=== PATIENT | female | born 1965 | race Caucasian/White ===

== ENCOUNTER 2018-05-28 17:18 | Inpatient (IN) ==
[2018-05-28] MEDS ORDERED: Naloxone 0.4 MG/ML INJ IVP PRN (23:10)
[2018-05-28] MEDS ORDERED: Acetaminophen 325 MG TABLET PO PRN (23:10)
[2018-05-28] MEDS ORDERED: Ondansetron 4 MG/2 ML VIAL IVP PRN (23:13)
[2018-05-28] MEDS ORDERED: Ketorolac 30 MG/ML VIAL IVP PRN (23:13)
--- NOTE | 2018-05-28 23:17 | Internal Med History&Physical ---
Date of Encounter: 05/28/18 Time of Encounter: 10:00 Internal Medicine - H&P: HPI Chief complaint: Abdominal pain Admitted From: Home Plans for Post Hospital Care: Home History of present illness: Ms. Mejia is a 52 year old female transferred from [facility] for abdominal pain. Patient is generally in good health without significant past medical history. Patient has abdominal pain since May 24. The pain is intermittent. Located on right upper quadrant or epigastric area. Radiated to the back. Patient went to [facility] and abdominal CT shows cholelithiasis and also suggested bilateral pneumonia. Patient was admitted for pneumonia and was treated with Zosyn. Patient's abdominal pain has improved after treatment. Patient was discharged on May 26 with by mouth Levaquin. Today patient has worsening abdominal pain again and presented to [facility] emergency room. US abdomen shows cholelithiasis with signs of acute cholecystitis. Patient was transferred to our hospital for further management. Patient denies fever, nausea, or diarrhea. Patient denies cough or shortness of breath. Lab and imaging test from [facility] has been reviewed: CBC 14.6/15.1/45.9 /449, BMP 137/4.0/105/25/13/0.67/111, lipase 11, lactate 1.12. US liver: Cholelithiasis with acute cholecystitis. Past Med Surg Social Fam HX - Past Medical History Medical history: no medical history - Past Surgical History Additional surgical history: tubal 31 years ago - Social History Smoking Status: Current every day smoker Alcohol use: none Drug use: none - Family History Mother Adopted: No Living Status: Still Living Hx Family Cardiac Disorders: Yes (grandfather heart attack) Hx Family Respiratory Disorders: No Hx Family Cancer: Yes (grandfather liver, lung) Hx Family GI Disorders: No Hx Family Genitourinary Disorders: No Hx Family Endocrine Disorder: Yes (mother dm) Hx Family Musculoskeletal Disorders: No Hx Family Neuromuscular Disorders: No Hx Family Neurologic Disorders: No Hx Family HEENT Disorders: No Hx Family Autoimmune Disorders: No Hx Family Reproductive Disorders: No Hx Family Psychosocial Disorders: No Hx Family Medical Disorders: No Internal Medicine - H&P: Meds Levofloxacin [Levaquin] 750 mg PO DAILY MDD 7 days 05/28/18 [History] 3 Allergy/AdvReac Type Severity Reaction Status Date / Time No Known Allergies Allergy Verified 05/28/18 22:11 All Systems PM: A 10-system review of systems was performed and is negative for pertinent findings except as documented above in the HPI. - Constitutional Vitals: Temp Pulse Resp BP Pulse Ox 98.9 F 59 15 150/77 96 05/28/18 20:17 05/28/18 20:17 05/28/18 20:17 05/28/18 20:17 05/28/18 20:17 General appearance: Present: A&O X 3, no acute distress, answers questions appropriately - Head Head exam: Present: atraumatic, normocephalic - Eye Eye exam: Present: PERRL, conjuntiva pink, sclera anicteric Pupils: Present: PERRL - Neck Neck exam general surgery: Present: supple, trachea midline. Absent: lymphadenopathy - Respiratory Respiratory exam: Present: CTAB. Absent: accessory muscle use, rales, rhonchi, wheezes - Cardiovascular Cardiovascular exam: Present: RRR, +S1, +S2. Absent: diastolic murmur, gallop, rubs, systolic murmur - GI/Abdominal GI/Abdominal exam: Present: normal bowel sounds, soft, tenderness (Tenderness on right upper quadrant and epigastric area. Smith's sign positive), no peritoneal signs. Absent: distended - Extremities Exam Extremities exam: Present: warm, radial pulses palpable and symmetrical. Absent : calf tenderness, cyanotic, pedal edema - Neurological Exam Neurological exam: Present: CN II-XII intact, oriented X3, no focal deficits. Absent: pronater drift, facial droop, speech deficit - Skin Skin exam: Present: dry, intact - Assessment and plan (1) Cholelithiasis Current Visit: Yes Status: Acute Assessment and plan: Surgical consult. Plan for surgery. Qualifiers: Cholelithiasis location: gallbladder Cholecystitis presence: with cholecystitis Cholecystitis acuity: acute Biliary obstruction: without biliary obstruction Qualified Code(s): K80.00 - Calculus of gallbladder with acute cholecystitis without obstruction (2) Acute cholecystitis Current Visit: Yes Status: Acute Assessment and plan: Surgical consult. - Keep patient nothing by mouth, IV fluid - Restart IV Zosyn - Symptomatic treatment for pain and nausea (3) DVT prophylaxis Current Visit: Yes Status: Acute Assessment and plan: EPCDs - Time Spent With Patient Total time spent is greater than 50% in coordination of care (as documented) at patient's floor/unit and/or counseling patient: 40 minutes Greater than 35 minutes
[2018-05-29] MEDS: Piperacillin/Tazobactam 3.375 GM in 0.9 % Sodium Chloride Mini Bag 100 ML IVPB SCH ×4 (01:21→23:56)
[2018-05-29] MEDS: D5% in 0.45% NACL 1,000 ML IVC SCH ×2 (01:22→15:49)
[2018-05-29 05:25] LABS: Basophils # 0.1 K/mcL (0.0-0.2); Basophils % 0.6 %; Eosinophils # 0.5 K/mcL (0.0-0.6); Hematocrit 39.5 % (35.3-44.9); Hemoglobin 13.2 g/dL (11.5-15.4); Immature Granulocytes % 0.3 % (0-4); Lymphocytes # 2.9 K/mcL (0.6-4.6); Lymphocytes % 26.4 %; Mean Corpuscular HGB Conc 33.4 g/dL (31.6-35.5); Mean Corpuscular Hemoglobin 29.8 pg (28.0-33.3); Mean Corpuscular Volume 89.2 fL (83.0-100.0); Mean Platelet Volume 9.7 fL (9.4-12.4); Monocytes # 0.9 K/mcL (0.0-1.3); Monocytes % 7.7 %; Neutrophils # 6.8 K/mcL (1.6-8.9); Platelet Count 376 K/mcL (140-400); Red Blood Count 4.43 M/mcL (3.82-4.97); Red Cell Distribution Width 13.4 % (11.5-14.5)
[2018-05-29 05:31] LABS: INR 1.1; Prothrombin Time 12.8 Seconds (9.4-12.1)
[2018-05-29 05:44] LABS: BUN/Creatinine Ratio 16 (6-26); Blood Urea Nitrogen 12 mg/dL (6-20); Carbon Dioxide 24 mEq/L (23-29); Chloride 108 mEq/L (98-107); Glucose 106 mg/dL (70-105); Magnesium 2.1 mg/dL (1.6-2.6); Osmolality,Calculated 286 (280-300); Potassium 4.1 mEq/L (3.5-5.1); Sodium 138 mEq/L (136-145); eGFR For African Americans > 60 (> 60); eGFR For Non-African Americans > 60 (> 60)
[2018-05-29 10:28] LABS: Albumin 3.8 g/dL (3.5-5.7); Albumin/Globulin Ratio 1.4 (1.1-2.2); Bilirubin,Direct 0.3 mg/dL (0.0-0.2); Bilirubin,Indirect 0.4 mg/dL (0.0-1.2); Bilirubin,Total 0.7 mg/dL (0.3-1.0); Globulin 2.7 g/dL (2.4-3.5); Total Protein 6.5 g/dL (6.4-8.9)
[2018-05-29] MEDS ORDERED: *HR* Succinylcholine 200 MG/10 ML VIAL IVP ONE (15:46)
[2018-05-29] MEDS ORDERED: *HR* Rocuronium Bromide 50 MG/5 ML VIAL ONE (15:46)
[2018-05-29] MEDS ORDERED: Lidocaine -MPF 2% 2 ML VIAL ONE (15:46)
[2018-05-29] MEDS ORDERED: *HR* FentaNYL (PF) 100 MCG/2 ML VIAL ONE (15:46)
[2018-05-29] MEDS ORDERED: *HR* Midazolam HCl 2 MG/2 ML VIAL ONE (15:46)
[2018-05-29] MEDS ORDERED: *HR* Propofol 200 MG/20 ML VIAL IVP ONE (15:46)
--- NOTE | 2018-05-29 16:01 | Internal Med Progress Note ---
Date of Encounter: 05/30/18 Time of Encounter: 18:49 - Assessment and plan (1) Acute cholecystitis Status: Acute Assessment and plan: Just returned from cholecystectomy, no issues - Continue Zosyn - Toradol prn pain - Zofran prn n/v (2) Cholelithiasis Status: Acute Assessment and plan: S/p cholecystectomy Qualifiers: Cholelithiasis location: gallbladder Cholecystitis presence: with cholecystitis Cholecystitis acuity: acute and chronic Biliary obstruction: without biliary obstruction Qualified Code(s): K80.12 - Calculus of gallbladder with acute and chronic cholecystitis without obstruction (3) DVT prophylaxis Status: Acute Assessment and plan: EPCDs - Time Spent With Patient Total time spent is greater than 50% in coordination of care (as documented) at patient's floor/unit and/or counseling patient: - Constitutional Vitals: Temp Pulse Resp BP Pulse Ox 97.8 F 92 16 120/66 94 05/29/18 10:31 05/29/18 10:31 05/29/18 10:31 05/29/18 10:31 05/29/18 10:31 General appearance: Present: A&O X 3, no acute distress, answers questions appropriately Internal Medicine: Result - Labs CBC & Chem 7: 05/30/18 08:46 05/30/18 08:46 Labs: Short CBC 05/29/18 Range/Units 05:10 WBC 11.2 H (4.3-11.1) K/mcL Hgb 13.2 (11.5-15.4) g/dL Hct 39.5 (35.3-44.9) % Plt Count 376 (140-400) K/mcL Neutrophils # 6.8 (1.6-8.9) K/mcL BMP 05/29/18 05:10 Sodium 138 Potassium 4.1 Chloride 108 H Carbon Dioxide 24 BUN 12 Creatinine 0.73 Glucose 106 H Calcium 9.0 Liver Function 05/29/18 Range/Units 09:41 Total Bilirubin 0.7 (0.3-1.0) mg/dL Direct Bilirubin 0.3 H (0.0-0.2) mg/dL AST 34 (13-39) Units/L ALT 28 (7-52) Units/L Alkaline Phosphatase 95 (34-104) Units/L Albumin 3.8 (3.5-5.7) g/dL - ABG Interpretation ABG results: PT/INR, D-dimer PT 12.8 Seconds (9.4-12.1) H 05/29/18 05:10 Consult Discharge Plan - Plan Instructions: Laparoscopic Cholecystectomy (DC) Referrals: Sanjay Darden MD [Non-Partnered Physician] - 06/16/18 NONE,PCP [Primary Care Provider] - Prescriptions: Oxycodone HCl 5 mg PO Q6HR PRN 5 Days #20 tablet PRN Reason: Pain
--- NOTE | 2018-05-29 16:30 | Anesthesia Evaluation PreOp ---
Date of Encounter: 05/29/18 Time of Encounter: 16:28 - Past History Planned Operation: Robotic Assisted Laparoscopic Cholecystectomy Cardiac History: Denies any Significant Hx Pulmonary History: Smoker (quit 1 week ago, smoked for 30 years), Snore CHOIRMASTER History: Denies Any Significant HX Other Medical History: Denies Any Significant HX Anesthesia History: No Prior Anesthetic Complications, Past Anesthesia Alcohol Use: none Drug use: none Medications and Allergies Levofloxacin [Levaquin] 750 mg PO DAILY MDD 7 days 05/28/18 [History] 3 Allergy/AdvReac Type Severity Reaction Status Date / Time No Known Allergies Allergy Verified 05/28/18 22:11 - Meds/Allergy Pre-op Review Medications Reviewed: Yes Allergies Reviewed: Yes Beta Blockers on Current Med List: No Anesthesia Results - Labs 05/29/18 05:10 05/29/18 05:10 Laboratory Tests 05/29/18 05:10 PT 12.8 H INR 1.1 Anesthesia Exam Vital Signs/O2 Sat, Most Current Temp Pulse Resp BP Pulse Ox 97.8 F 92 16 120/66 94 05/29/18 10:31 05/29/18 10:31 05/29/18 10:31 05/29/18 10:31 05/29/18 10:31 Height: 5'1''/1.55m Weight: 138 lbs/62.6 kg NPO (# of Hours): 8 Pain Scale: 2 (abdomen) Pain Scale Used: Numeric (1 - 10) - HEENT Pupil (Motor): EOMI Mallampati: II Teeth: Normal Oral Opening: Greater than 3 - CHOIRMASTER LOC: Oriented CHOIRMASTER Motor: Normal RUE, Normal LUE, Normal RLE, Normal LLE, Normal Face CHOIRMASTER Sensory: Normal: RUE, LUE, RLE, LLE, Face - Cardiac Rhythm: Regular Murmur: None - Pulmonary Breath Sounds: bilateral Clear Respiratory Effort: Symmetrical Anesthesia Assess/Plan ASA Score: [address] [place] [address] Scale for Level of Consciousness: Cooperative, oriented, and tranquil Anesthetic Plan: General Monitoring Plan: Standard Monitors Recovery Plan: PACU
--- NOTE | 2018-05-29 16:36 | General Surgery Consult Note ---
Date of Encounter: 05/29/18 Time of Encounter: 16:34 Assessment and Plan (1) Cholelithiasis Current Visit: Yes Status: Acute 52F with acute cholecystitis; no evidence of biliary obstruction by labs; NPO IVF robotic tania today Qualifiers: Cholelithiasis location: gallbladder Cholecystitis presence: with cholecystitis Cholecystitis acuity: acute Biliary obstruction: without biliary obstruction Qualified Code(s): K80.00 - Calculus of gallbladder with acute cholecystitis without obstruction History of Present Illness Consult date: 05/29/18 Reason for consult: abdominal pain History of present illness: 52F with a 5 day history of worsening abdominal pain localized to the epigastric and RUQ. The patient is not associated with nausea and vomiting, but the pain is associated with meals. the patient gives a history suggestive of PO intolerance because, when she eats her pain is worse. She was evaluated at an OSH where a CT scan was obtained demonstrating inflammation of her gallbladder. She was sent home, but due to recurrence of her pain she was sent to [facility] for further evaluation and management. Past Med Surg Social Fam HX - Past Medical History Medical history: no medical history - Past Surgical History Additional surgical history: tubal 31 years ago - Social History Smoking Status: Current every day smoker Alcohol use: none Drug use: none - Family History Mother Adopted: No Living Status: Still Living Hx Family Cardiac Disorders: Yes (grandfather heart attack) Hx Family Respiratory Disorders: No Hx Family Cancer: Yes (grandfather liver, lung) Hx Family GI Disorders: No Hx Family Genitourinary Disorders: No Hx Family Endocrine Disorder: Yes (mother dm) Hx Family Musculoskeletal Disorders: No Hx Family Neuromuscular Disorders: No Hx Family Neurologic Disorders: No Hx Family HEENT Disorders: No Hx Family Autoimmune Disorders: No Hx Family Reproductive Disorders: No Hx Family Psychosocial Disorders: No Hx Family Medical Disorders: No Medications and Allergies Levofloxacin [Levaquin] 750 mg PO DAILY MDD 7 days 05/28/18 [History] 3 Allergy/AdvReac Type Severity Reaction Status Date / Time No Known Allergies Allergy Verified 05/28/18 22:11 Review of Systems All systems PM: The remainder of the systems were reviewed and are negative General Surgery Exam Initial Vital Signs Temp Pulse Resp BP Pulse Ox 98.9 F 59 15 150/77 96 05/28/18 20:17 05/28/18 20:17 05/28/18 20:17 05/28/18 20:17 05/28/18 20:17 - General physical appearance no distress - Eyes other (no scleral icterus), normal ocular movement - ENT normocephalic - Respiratory normal expansion, normal respiratory effort - Cardiovascular Cardiovascular exam: Present: RRR - Abdomen Abdomen general surgery: Present: soft, tender Abdominal Tenderness: Present: epigastic ((-)hall's sign on my exam), RUQ - Integumentary Integumentary general surgery: Present: warm and dry - Neurologic Present: CN 2-12 grossly intact - Musculoskeletal Present: normal posture - Psychiatric Psychiatric general surgery: Present: A&Ox3 Exam Initial Vital Signs Temp Pulse Resp BP Pulse Ox 98.9 F 59 15 150/77 96 05/28/18 20:17 05/28/18 20:17 05/28/18 20:17 05/28/18 20:17 05/28/18 20:17 Results - Labs 05/29/18 05:10 05/29/18 05:10 Abnormal lab results WBC 11.2 K/mcL (4.3-11.1) H 05/29/18 05:10 PT 12.8 Seconds (9.4-12.1) H 05/29/18 05:10 Chloride 108 mEq/L (98-107) H 05/29/18 05:10 Glucose 106 mg/dL (70-105) H 05/29/18 05:10 POC Glucose 109 mg/dL (70-99) H 05/29/18 11:08 Direct Bilirubin 0.3 mg/dL (0.0-0.2) H 05/29/18 09:41 Diabetes panel 05/29/18 05/29/18 Range/Units 05:10 09:41 Sodium 138 (136-145) mEq/L Potassium 4.1 (3.5-5.1) mEq/L Chloride 108 H (98-107) mEq/L Carbon Dioxide 24 (23-29) mEq/L BUN 12 (6-20) mg/dL Creatinine 0.73 (0.60-1.20) mg/dL Glucose 106 H (70-105) mg/dL Calcium 9.0 (8.6-10.3) mg/dL AST 34 (13-39) Units/L ALT 28 (7-52) Units/L Alkaline Phosphatase 95 (34-104) Units/L Albumin 3.8 (3.5-5.7) g/dL Calcium panel 05/29/18 05/29/18 Range/Units 05:10 09:41 Calcium 9.0 (8.6-10.3) mg/dL Albumin 3.8 (3.5-5.7) g/dL Pituitary panel 05/29/18 Range/Units 05:10 Sodium 138 (136-145) mEq/L Potassium 4.1 (3.5-5.1) mEq/L Chloride 108 H (98-107) mEq/L Carbon Dioxide 24 (23-29) mEq/L BUN 12 (6-20) mg/dL Creatinine 0.73 (0.60-1.20) mg/dL Glucose 106 H (70-105) mg/dL Calcium 9.0 (8.6-10.3) mg/dL Adrenal panel 05/29/18 05/29/18 Range/Units 05:10 09:41 Sodium 138 (136-145) mEq/L Potassium 4.1 (3.5-5.1) mEq/L Chloride 108 H (98-107) mEq/L Carbon Dioxide 24 (23-29) mEq/L BUN 12 (6-20) mg/dL Creatinine 0.73 (0.60-1.20) mg/dL Glucose 106 H (70-105) mg/dL Calcium 9.0 (8.6-10.3) mg/dL Total Bilirubin 0.7 (0.3-1.0) mg/dL AST 34 (13-39) Units/L ALT 28 (7-52) Units/L Alkaline Phosphatase 95 (34-104) Units/L Albumin 3.8 (3.5-5.7) g/dL All other labs normal. Consult Discharge Plan - Plan Referrals: NONE,PCP [Primary Care Provider] -
[2018-05-29] MEDS ORDERED: MORPHINE SUL Oral CONC 10 MG/0.5 ML ORAL.SYG SL PRN (16:38)
[2018-05-29] MEDS ORDERED: Ondansetron 4 MG/2 ML VIAL IVP ONE (16:38)
[2018-05-29] MEDS ORDERED: Albuterol 2.5 MG/3 ML NEBULIZER IH ONE (16:39)
[2018-05-29] MEDS ORDERED: Dexamethasone 4 MG/ML VIAL ONE (17:02)
[2018-05-29] MEDS ORDERED: Ondansetron 4 MG/2 ML VIAL ONE (17:02)
[2018-05-29] MEDS ORDERED: Neostigmine Methylsulfate 3 MG/3 ML SYRINGE ONE (17:58)
[2018-05-29] MEDS ORDERED: Ketorolac 30 MG/ML VIAL ONE (18:03)
[2018-05-29] MEDS: *HR* FentaNYL (PF) 100 MCG/2 ML VIAL IVP PRN ×2 (18:38→18:48)
[2018-05-29] MEDS ORDERED: Acetaminophen IV 1,000 MG/100 ML INFUS..BTL IVPB ONE (18:56)
--- NOTE | 2018-05-29 19:07 | Anesthesia Evaluation Post Op ---
Date of Encounter: 05/29/18 Time of Encounter: 19:06 - Vital Signs Vital Signs: Vital Signs/O2 Sat, Most Current Temp Pulse Resp BP Pulse Ox 98 F 59 16 161/69 93 05/29/18 18:25 05/29/18 18:45 05/29/18 18:45 05/29/18 18:45 05/29/18 18:45 - Lungs Lungs: Clear Ascult./Percussion - Airway Airway: Non-obstructed - Cardiovascular Regular Rate - Mental Status Mental Status: Alert & Oriented, Answers Appropriately - Pain Pain Scale: 7 (resting comfortably) Pain Scale used: Numeric (1 - 10) - Nausea Vomiting Nausea Vomiting: Not Present - Hydration Hydration: NPO, Has not voided - Discharge PostOp Status: Transfer Patient to floor
[2018-05-30 07:05] VITALS: BP 102/62
[2018-05-30] MEDS: Piperacillin/Tazobactam 3.375 GM in 0.9 % Sodium Chloride Mini Bag 100 ML IVPB SCH (08:03)
[2018-05-30 09:06] LABS: Basophils % 0.2 %; Eosinophils % 0.3 %; Hematocrit 41.1 % (35.3-44.9); Hemoglobin 13.9 g/dL (11.5-15.4); Immature Granulocytes % 0.2 % (0-4); Lymphocytes # 2.6 K/mcL (0.6-4.6); Lymphocytes % 20.7 %; Mean Corpuscular HGB Conc 33.8 g/dL (31.6-35.5); Mean Corpuscular Hemoglobin 30.5 pg (28.0-33.3); Mean Corpuscular Volume 90.3 fL (83.0-100.0); Mean Platelet Volume 9.8 fL (9.4-12.4); Monocytes # 0.8 K/mcL (0.0-1.3); Monocytes % 6.1 %; Platelet Count 399 K/mcL (140-400); Red Blood Count 4.55 M/mcL (3.82-4.97); Red Cell Distribution Width 13.2 % (11.5-14.5); Segmented Neutrophils % 72.5 %
[2018-05-30 09:30] LABS: BUN/Creatinine Ratio 17 (6-26); Blood Urea Nitrogen 11 mg/dL (6-20); Calcium 8.9 mg/dL (8.6-10.3); Carbon Dioxide 27 mEq/L (23-29); Chloride 106 mEq/L (98-107); Glucose 98 mg/dL (70-105); Osmolality,Calculated 287 (280-300); Sodium 139 mEq/L (136-145); eGFR For African Americans > 60 (> 60); eGFR For Non-African Americans > 60 (> 60)
--- NOTE | 2018-05-30 10:05 | Discharge Summary ---
Orders not resulted at time of discharge: Pending orders 05/28/18 22:44 ECG 12 lead ECG [ECG] Stat 05/29/18 18:02 Surgical Pathology [PTH] Routine 05/31/18 04:00 BMP [Basic Metabolic Panel] AM 0400 Complete Blood Count [HEME] AM 0400 06/01/18 04:00 BMP [Basic Metabolic Panel] AM 0400 Complete Blood Count [HEME] AM 0400 Date of Encounter: 05/30/18 Time of Encounter: 10:04 - Discharge Diagnosis (1) Cholelithiasis Priority: Primary Status: Acute Comments: POD #1 s/p shania tania; reg diet SLIV okay for discharge today follow up in 2 weeks Qualifiers: Cholelithiasis location: gallbladder Cholecystitis presence: with cholecystitis Cholecystitis acuity: acute and chronic Biliary obstruction: without biliary obstruction Qualified Code(s): K80.12 - Calculus of gallbladder with acute and chronic cholecystitis without obstruction General Surgery Exam Initial Vital Signs Temp Pulse Resp BP Pulse Ox 98.9 F 59 15 150/77 96 05/28/18 20:17 05/28/18 20:17 05/28/18 20:17 05/28/18 20:17 05/28/18 20:17 - General physical appearance no distress - Eyes normal ocular movement - ENT normocephalic - Neck no lymphadectomy - Respiratory normal expansion, normal respiratory effort - Cardiovascular Cardiovascular exam: Present: RRR - Abdomen Abdomen general surgery: Present: soft, tender (appropriately tender) - Incision Incision: Present: clean and dry, intact - Integumentary Integumentary general surgery: Present: warm and dry - Neurologic Present: CN 2-12 grossly intact - Hospital Course Hospital course: Ms. Mejia is a 52 year old female - Time Spent with Patient Total time spent providing and/or coordinating discharge services: Greater than 30 minutes - Discharge Medications Home Medications: Levofloxacin [Levaquin] 750 mg PO DAILY MDD 7 days 05/28/18 [History] Allergies/Adverse Reactions: 3 Allergy/AdvReac Type Severity Reaction Status Date / Time No Known Allergies Allergy Verified 05/28/18 22:11 Date of admission: 05/28/18 20:16 Primary care physician: PCP NONE Consults: 05/28/18 23:12 Consult to Surgery [CONS] Routine Consulting Provider: [facility] Reason for Consult: Acute cholecystitis. Dr. Cr was informed by [facility] Call Completed: Yes Discharging clinician: Sanjay Darden Anticipated date of discharge: 05/30/18 (okay for discharge after tolerating regular diet) Labs on day of discharge: Labs from last 24 hours 05/30/18 05/30/18 05/29/18 08:46 08:46 23:10 WBC 12.5 H RBC 4.55 Hgb 13.9 Hct 41.1 MCV 90.3 MCH 30.5 MCHC 33.8 RDW 13.2 Plt Count 399 MPV 9.8 Immature Gran % 0.2 Seg Neutrophils % 72.5 Lymphocytes % 20.7 Monocytes % 6.1 Eosinophils % 0.3 Basophils % 0.2 Neutrophils # 9.0 H Lymphocytes # 2.6 Monocytes # 0.8 Eosinophils # 0.0 Basophils # 0.0 Sodium 139 Potassium 4.0 Chloride 106 Carbon Dioxide 27 BUN 11 Creatinine 0.65 Est GFR ( Amer) > 60 Est GFR (Non-Af Amer) > 60 BUN/Creatinine Ratio 17 Glucose 98 POC Glucose 133 H Calculated Osmolality 287 Calcium 8.9 Total Bilirubin Direct Bilirubin Indirect Bilirubin AST ALT Alkaline Phosphatase Serum Total Protein Albumin Globulin Albumin/Globulin Ratio 05/29/18 05/29/18 11:08 09:41 WBC RBC Hgb Hct MCV MCH MCHC RDW Plt Count MPV Immature Gran % Seg Neutrophils % Lymphocytes % Monocytes % Eosinophils % Basophils % Neutrophils # Lymphocytes # Monocytes # Eosinophils # Basophils # Sodium Potassium Chloride Carbon Dioxide BUN Creatinine Est GFR ( Amer) Est GFR (Non-Af Amer) BUN/Creatinine Ratio Glucose POC Glucose 109 H Calculated Osmolality Calcium Total Bilirubin 0.7 Direct Bilirubin 0.3 H Indirect Bilirubin 0.4 AST 34 ALT 28 Alkaline Phosphatase 95 Serum Total Protein 6.5 Albumin 3.8 Globulin 2.7 Albumin/Globulin Ratio 1.4 - Patient Status Disposition: Home, Self-Care Condition: Good Overall status at discharge: patient is back to baseline - Discharge Instructions Follow Up With: NONE,PCP [Primary Care Provider] - Sanjay Darden MD [Non-Partnered Physician] - 06/16/18 - Diet and Activity Activity: increase activity as tolerated Diet: advance to your usual diet
--- NOTE | 2018-05-30 13:50 | Internal Med Progress Note ---
Date of Encounter: 05/30/18 Time of Encounter: 14:19 - Assessment and plan (1) Acute cholecystitis Status: Acute Assessment and plan: Cholecystectomy 05/29 - Continue Zosyn in hospital - Toradol prn pain - Zofran prn n/v Okay per Surgery for discharge today, with scheduled follow-up. (2) Cholelithiasis Status: Acute Assessment and plan: S/p cholecystectomy Qualifiers: Cholelithiasis location: gallbladder Cholecystitis presence: with cholecystitis Cholecystitis acuity: acute and chronic Biliary obstruction: without biliary obstruction Qualified Code(s): K80.12 - Calculus of gallbladder with acute and chronic cholecystitis without obstruction (3) DVT prophylaxis Status: Acute Assessment and plan: EPCDs - Time Spent With Patient Total time spent is greater than 50% in coordination of care (as documented) at patient's floor/unit and/or counseling patient: - Subjective Interval history: no acute events. Denies fevers/chills, n/v. Has anticipated abdominal pain. - Constitutional Vitals: Temp Pulse Resp BP Pulse Ox 97.9 F 50 14 102/62 94 05/30/18 07:04 05/30/18 07:04 05/30/18 07:04 05/30/18 07:04 05/30/18 07:04 General appearance: Present: A&O X 3, no acute distress, answers questions appropriately - Head Head exam: Present: atraumatic, normocephalic - Eye Eye exam: Present: PERRL, conjuntiva pink, sclera anicteric Pupils: Present: PERRL - Neck Neck exam general surgery: Present: supple, trachea midline. Absent: lymphadenopathy - Respiratory Respiratory exam: Present: CTAB. Absent: accessory muscle use, rales, rhonchi, wheezes - Cardiovascular Cardiovascular exam: Present: RRR, +S1, +S2. Absent: diastolic murmur, gallop, rubs, systolic murmur - GI/Abdominal GI/Abdominal exam: Present: normal bowel sounds, soft, tenderness, no peritoneal signs. Absent: distended - Extremities Exam Extremities exam: Present: warm, radial pulses palpable and symmetrical. Absent : calf tenderness, cyanotic, pedal edema - Neurological Exam Neurological exam: Present: CN II-XII intact, oriented X3, no focal deficits. Absent: pronater drift, facial droop, speech deficit - Skin Skin exam: Present: dry, intact Internal Medicine: Result - Labs CBC & Chem 7: 05/30/18 08:46 05/30/18 08:46 Labs: Short CBC 05/30/18 Range/Units 08:46 WBC 12.5 H (4.3-11.1) K/mcL Hgb 13.9 (11.5-15.4) g/dL Hct 41.1 (35.3-44.9) % Plt Count 399 (140-400) K/mcL Neutrophils # 9.0 H (1.6-8.9) K/mcL BMP 05/30/18 08:46 Sodium 139 Potassium 4.0 Chloride 106 Carbon Dioxide 27 BUN 11 Creatinine 0.65 Glucose 98 Calcium 8.9 - ABG Interpretation ABG results: PT/INR, D-dimer PT 12.8 Seconds (9.4-12.1) H 05/29/18 05:10 - VTE Documentation of Mechanical Device: Intermittent pneumatic compression device Consult Discharge Plan - Plan Instructions: Laparoscopic Cholecystectomy (DC) Referrals: Sanjay Darden MD [Non-Partnered Physician] - 06/16/18 NONE,PCP [Primary Care Provider] - Prescriptions: Oxycodone HCl 5 mg PO Q6HR PRN 5 Days #20 tablet PRN Reason: Pain
--- NOTE | 2018-05-30 17:50 | Operative Note ---
Date of procedure: 05/29/18 Pre-op diagnosis: acute cholecystitis Post-op diagnosis: same Procedure: robotic cholecystectomy with ICG intraoperative cholangiogram Implants: none Complications: none Anesthesia: GETA Local Anesthetics: 0.5% Sensorcaine HCL SubQ (cc) Surgeon: Sanjay Darden Was there an assistant manager retail present: Yes Director Of People: Shelby Cordova Estimated blood loss (cc): 10 Specimen: gallbladder and contents Condition: stable Disposition: PACU Procedure in Detail: The patient was brought into the operating room suite and was placed in the supine position. Mechanical DVT prophylaxis was applied. A time-in was conducted. The patient underwent smooth induction of anesthesia. Preoperative antibiotics were given. The patient was prepped and draped in the usual fashion. A time-out was held identifying the correct patient, pathology, and procedure. Everyone was in agreement and we began the procedure. I did inject the patient with 2cc of ICG prior to beginning; Incision to Dissection I started by creating a 12mm supraumbilical incision. Via open Laurel technique I did enter into the abdomen. I inserted the 12mm trocar followed by the 30 degree camera, ensured that I did not cause intraabdominal injury upon entry, and quickly identified the gallbladder. I created a 5mm incisions one handbreadth to the left and right of the umbilical incision and an assistant manager retail port along the R anterior axillary line. I then docked the robot in the usual fashion. Using laparoscopic graspers I managed to elevate the gallbladder above the liver. At the Console I grasp the edge of the gallbladder to retract laterally. Using the [place] instrument as well as the hook-electrocautery, I dissected out the cystic duct and the cystic artery. I excised the posterior tissue to visualize the liver. I was able to clearly visualize the critical view of safety. I utilized the firefly mode on the robotic to distinguish between the cystic duct and the common bile duct to serve as an intraoperative cholangiogram. Critical view of Safety to Excison of the gallbladder I then clipped both structures using plastic clips, two on the stay side, one on the specimen side. Using robotic scissors, I cut between the clip on the specimen side and the first clip on the stay side. Then using tension and counter-tension, I used the electrocautery to excise the gallbladder off of the liver bed. Before complete excision, I evaluated the liver bed to ensure there 1.) there was no bleeding, 2. No excessive bile leakage, and 3.) to evaluate my clips. There was no bleeding, bile leakage, and the clips were all the way across both duct and artery. Removal of gallbladder to Closure After undocking the robot, I inserted the endocatch bag into the umbilical port. I placed the specimen into the bag and retrieved it through the umbilical port. i then irrgiated the liver bed and above the liver before suctioning both irrigation fluid and air. I removed the 5mm ports, turned off the insufllation, then removed the 12mm umbilical port. I then close the umbilical fascia a vicryl suture in a figure of 8 fashion. All incisions were closed with interrupted 4-0 monocryl and sealed with dermabond. The patient tolerated the procedure well and went back to PACU in stable condition.
--- NOTE | 2018-05-31 14:53 | Electrocardiograph Report ---
[address] [place], [place] [address] Test Date: 2018-05-28 Pat Name: Cintia Mejia Department: 115 Room: 3A Gender: F Manufacturing Leader: [id number] : 1965 Requested By: Trice Washington Order Number: [id number] Reading MD: Junaid Jackson Measurements Intervals [place] Rate: 53 P: 51 AK: 177 QRS: 6 QRSD: 100 T: 10 QT: 454 QTc: 437 Interpretive Statements SINUS BRADYCARDIA Electronically Signed On 05-31-2018 14:51:49 EDT by Junaid Jackson
== END 2018-05-30 13:55 | disposition home or self-care (01) | DRG 263 ==
LOC: 3ANU 20:16
PROVIDERS: ADMIT Internal Medicine Nephrology; ATTEND Internal Medicine Nephrology